=== PATIENT | male | born 1950 | race Caucasian/White ===

== ENCOUNTER 2018-08-05 22:56 | Inpatient (IN) | payer OTHER ==
[~2018-08-05] VITALS: Ht 167.6 cm; Wt 105.7 kg
--- NOTE | ~2018-08-05 | CON ---
[place], [place] REPORT OF CONSULTATION NAME: ABBY STANLEY UNIT #: [id number] ROOM: 411 DOCTOR: LORA BALDERAS MD BIRTHDATE: [birth year] DOS: CHIEF COMPLAINT: GI bleed, undergoing investigation. HISTORY OF PRESENT ILLNESS: The patient presented with H and H of 13 and 40, dropped to hemoglobin of 8, status post multi transfusion. His initial white blood cell was 13, H and H of 13 and 40 as well, platelet count of 279. INR of 1.0. Comprehensive metabolic panel: Glucose of 650, BUN and creatinine 68 and 147. Electrolytes: Sodium 129. Liver function test normal, lipase of 244. CT scan of the abdomen and pelvis was organized diverticulosis, no evidence of inflammatory process was noticed. CBC differential was reassessed. Comprehensive metabolic panel followed and latest H and H was noticed, progressive drop seen. H and H of 8 and 23. The patient is going to receive unit of packed cells. His BUN and creatinine gradually worsened to 68 and 1.47 with a pseudohyponatremia that was noticed. PAST MEDICAL HISTORY: Associated with obesity, diabetes mellitus, history of seizure activity, systemic hypertension, hyperlipidemia. PAST SURGICAL HISTORY: Tonsillectomy, cardiac catheterization, skin graft. SOCIAL HISTORY: Nonsmoker and alcohol consumer. FAMILY HISTORY: Noncontributory. Multi carcinomas. ALLERGIES: No known medications. MEDICATIONS: Medication list has been reviewed. REVIEW OF SYSTEMS: In general, HEENT: Denies double vision, blurred vision. RESPIRATORY: Denies acute shortness of breath. CARDIOVASCULAR: Denies chest pain. DIGESTIVE SYSTEM: As identified with GI bleed, melanotic stool. PHYSICAL EXAMINATION: VITAL SIGNS: Stable. HEENT: Head normocephalic, nontraumatic. Mouth and buccal mucosa benign. Poor dental hygiene. NECK: Supple, no thyromegaly, no cervical lymphadenopathy. CHEST: Symmetric anatomy, equal expansion. Few scattered rhonchi. HEART: Normal sinus rhythm, no gallop, no murmur. ABDOMEN: Morbid obese. Bowel sounds present. No pulsatile mass, ventral hernia was identified. EXTREMITIES: No cyanosis, no pedal edema. A few patches of superficial hematomas noticed. NEUROLOGIC: Alert and oriented. IMPRESSION: Black tarry stool, ruling out gastrointestinal bleed, ruling out peptic ulcer disease versus occult malignancy, status post transfusion. Other [place], [place] REPORT OF CONSULTATION NAME: ABBY STANLEY UNIT #: [id number] ROOM: 411 DOCTOR: LORA BALDERAS MD BIRTHDATE: [birth year] adjunctive diagnoses as outlined in paragraph of past medical, surgical history, pseudohyponatremia hyperglycemia prostatic hypertrophy, diabetes mellitus, systemic hypertension, hyperlipidemia. All has been recognized. PLAN AND DISCUSSION: Endoscopic investigation. LORA BALDERAS MD CM:CONSTR:REPORT OF CONSULTATION 1651 08/10/18 [id number] interface
--- NOTE | ~2018-08-05 | O ---
[place], [place] OPERATIVE NOTE NAME: ABBY STANLEY UNIT #: [id number] ROOM: 411 DOCTOR: [facility]ISS [facility] BIRTHDATE: [birth year] DOS: IDENTIFICATION: This is a 68-year-old patient who presented with GI bleed, undergoing investigation. PROCEDURE: Today's procedure part of investigation is panendoscopy and colonoscopy. PREMEDICATION: Propofol. SCOPE: Olympus forward-viewing gastroscope Q10 video. REPORT: After putting the patient in left lateral position and application of lubricant to the scope, scope was introduced. Thereafter, under direct visualization, advanced through the length of esophagus without difficulty. Evidence of reflux esophagitis, distal esophageal ulceration was identified. Small hiatal hernia of 2 cm was noticed. Gastric pouch was entered. Fresh blood admixed with bile in the gastric pouch was noticed. Scope was negotiated towards the antrum and pyloric ring that at 11'o clock pyloric ring, there is a visible vessel as a source of bleeding. Duodenum was entered. D1 multiple ulcerations D2 and D3 normal. A 2 mL divided dose epinephrine was injected in the flanks of the ulceration and resolution clips x 2 was applied in flanks of the ulceration. Antral biopsy obtained for H. pylori. GI reflection scope reveals cardia to be benign. Air was suctioned out. The patient was extubated, tolerated the procedure well. IMPRESSION: Distal esophageal ulcer secondary to reflux, hiatal hernia, pyloric ring visible vessel with bleeding, status post hemostasis therapy with epinephrine injection and Resolution clip, multi-duodenal ulcers D1 without active bleeding. PLAN AND DISCUSSION: Aggressive ulcer therapy with sucralfate 2 grams slurry 2 hours before meals and at bedtime and Protonix 50 mcg loading dose and 50 mcg per hour for up to 6 a.m. and after that reducing to 25 mcg per hour protection again rebleed of the pyloric ring ulcer diet to remain ice cream, milk shake, ____ ice water, designed for diabetic diet absolutely avoiding solid food right now despite the perspiration of the patient to receive the solid regular food and we will proceed also with a colonoscopy to make sure that we do not have synchronous bleeding. No IV from diverticular or ischemic bowel. Today's procedure part of investigation is colonoscopy. PREMEDICATION: Propofol. SCOPE: Olympus folding colonoscope 10L video. REPORT: After putting the patient in left lateral position and application of lubricant to the scope, the scope was introduced; thereafter, under direct visualization through the length of colon without difficulty. Diverticulosis was noticed large volume of blood in the colon was noticed. Therefore, the [place], [place] OPERATIVE NOTE NAME: ABBY STANLEY UNIT #: [id number] ROOM: 411 DOCTOR: LORA BALDERAS MD BIRTHDATE: [birth year] visualization extremely limited. The patient extubated, tolerated the procedure well. IMPRESSION: Limited colonoscopy presence of large volume of blood in the colon. PLAN AND DISCUSSION: Follow up H and H transfusion and workup in progress. LORA BALDERAS MD CM:OPRECORD:OPERATIVE NOTE 1651 [id number] LORA BALDERAS MD 08/10/18 1457 interface
[~2018-08-05 22:56] MED LIST: BP MED PO; GOUT MED PO; [UNRECOGNIZED DRUG - REMARK] PO
[2018-08-05 23:03] VITALS: BP 144/91
[2018-08-05 23:48] LABS: BASO # 0.1 10*3/uL (0.0-0.1); BASO % 0.4 % (0.0-1.0); EOS # 0.2 10*3/uL (0.0-0.4); EOS % 1.5 % (1.0-4.0); HEMATOCRIT 40.1 % (42.0-52.0); HEMOGLOBIN 13.8 g/dl (14.0-18.0); LYMPH # 1.5 10*3/uL (1.3-4.4); LYMPH % 11.1 % (27.0-41.0); MEAN CELL VOLUME 95.5 fl (80.0-94.0); MEAN CORPUSCULAR HGB 32.9 pg (27.0-31.0); MEAN CORPUSCULAR HGB CONC 34.4 g/dl (33.0-37.0); MEAN PLATELET VOLUME 11.5 fl (9.6-12.3); MONO # 0.4 10*3/uL (0.1-1.0); MONO % 3.2 % (3.0-9.0); NEUT # 11.3 10*3/uL (2.3-7.9); NEUT % 83.1 % (47.0-73.0); PLATELET COUNT AUTOMATED 279 10*3/uL (130-400); RED CELL DISTRI WIDTH 12.5 % (0-14.5); WHITE BLOOD COUNT 13.6 10*3/uL (4.8-10.8)
[2018-08-05 23:58] LABS: ACT PARTIAL THROMBO TIME 23.6 SECONDS (20.8-31.5); INTERNATIONAL NORM RATIO 1.1 (2.0-3.5)
[2018-08-06] VITALS (8 sets, daily range): BP systolic 113–158; BP diastolic 69–91
[2018-08-06 00:03] LABS: ALBUMIN 3.8 gm/dl (3.1-4.5); CREATININE 1.47 mg/dL (0.70-1.30); POTASSIUM 5.1 mmol/L (3.5-5.1); TOTAL PROTEIN 8.4 gm/dL (6.4-8.2)
[2018-08-06 07:03] LABS: BASO % 0.3 % (0.0-1.0); EOS # 0.1 10*3/uL (0.0-0.4); EOS % 0.4 % (1.0-4.0); HEMATOCRIT 35.6 % (42.0-52.0); HEMOGLOBIN 12.3 g/dl (14.0-18.0); LYMPH # 2.3 10*3/uL (1.3-4.4); LYMPH % 17.3 % (27.0-41.0); MEAN CELL VOLUME 94.9 fl (80.0-94.0); MEAN CORPUSCULAR HGB 32.8 pg (27.0-31.0); MEAN CORPUSCULAR HGB CONC 34.6 g/dl (33.0-37.0); MEAN PLATELET VOLUME 11.6 fl (9.6-12.3); MONO # 0.8 10*3/uL (0.1-1.0); MONO % 5.8 % (3.0-9.0); NEUT % 75.7 % (47.0-73.0); PLATELET COUNT AUTOMATED 271 10*3/uL (130-400); RED BLOOD COUNT 3.75 10*6/uL (4.50-5.90); RED CELL DISTRI WIDTH 12.5 % (0-14.5); WHITE BLOOD COUNT 13.3 10*3/uL (4.8-10.8)
[2018-08-06 07:36] LABS: BUN 57 mg/dl (7-24); CHLORIDE 109 mmol/L (98-107); CREATININE 1.01 mg/dL (0.70-1.30); POTASSIUM 4.9 mmol/L (3.5-5.1); SODIUM 141 mmol/L (136-145)
[2018-08-06 08:21] LABS: BILIRUBIN NEGATIVE (NEGATIVE); BLOOD NEGATIVE (NEGATIVE); CLARITY CLEAR (CLEAR); COLOR YELLOW (YELLOW); GLUCOSE 3+ (NEGATIVE); KETONE NEGATIVE (NEGATIVE); LEUKO ESTERASE NEGATIVE (NEGATIVE); NITRITE NEGATIVE (NEGATIVE); PH 5.5 (5.0-9.0); UROBILINOGEN 0.2 E.U./dl (0.2-1.0)
[2018-08-06 08:41] LABS: RBC 0-2 rbc/hpf (0-2); WBC 0-2 wbc/hpf (0-5)
[2018-08-06] MEDS ORDERED: ALLOPURINOL100 MG PO (09:42)
[2018-08-06] MEDS ORDERED: VICTOZA 3-PAK6 MG/ML SC (09:42)
[2018-08-06] MEDS ORDERED: LOPID600 M1 PO (09:43)
[2018-08-06] MEDS ORDERED: LOPRESSOR25 MG PO (09:43)
[2018-08-06] MEDS ORDERED: JANUVIA100 MG PO (09:43)
[2018-08-06] MEDS ORDERED: LIPITOR10 MG PO (09:44)
[2018-08-06] MEDS ORDERED: ZESTRIL5 MG PO (09:44)
[2018-08-06] MEDS ORDERED: GLUCOPHAGE1000 MG PO (09:44)
[2018-08-06] MEDS ORDERED: GLUCOTROL10 MG PO (09:45)
[2018-08-07] VITALS (14 sets, daily range): BP systolic 113–150; BP diastolic 58–89
[2018-08-07 06:08] LABS: BASO # 0.1 10*3/uL (0.0-0.1); BASO % 0.4 % (0.0-1.0); EOS # 0.1 10*3/uL (0.0-0.4); EOS % 0.4 % (1.0-4.0); LYMPH # 2.4 10*3/uL (1.3-4.4); LYMPH % 17.3 % (27.0-41.0); MEAN CELL VOLUME 95.7 fl (80.0-94.0); MEAN CORPUSCULAR HGB 33.3 pg (27.0-31.0); MEAN CORPUSCULAR HGB CONC 34.8 g/dl (33.0-37.0); MEAN PLATELET VOLUME 11.7 fl (9.6-12.3); MONO # 0.7 10*3/uL (0.1-1.0); MONO % 4.8 % (3.0-9.0); NEUT # 10.5 10*3/uL (2.3-7.9); NEUT % 75.7 % (47.0-73.0); PLATELET COUNT AUTOMATED 266 10*3/uL (130-400); RED BLOOD COUNT 2.76 10*6/uL (4.50-5.90); RED CELL DISTRI WIDTH 12.9 % (0-14.5); WHITE BLOOD COUNT 13.8 10*3/uL (4.8-10.8)
[2018-08-07 06:18] LABS: ALBUMIN 3.2 gm/dl (3.1-4.5); ALKALINE PHOSPHATASE 78 U/L (45-117); BUN 49 mg/dl (7-24); CHLORIDE 108 mmol/L (98-107); CHOLESTEROL 111 mg/dL (<200); CREATININE 1.02 mg/dL (0.70-1.30); FREE T4 0.74 ng/dl (0.76-1.46); HDL CHOLESTEROL 25 mg/dl (40-60); LDL CHOLESTEROL 45 mg/dL (9-159); POTASSIUM 4.3 mmol/L (3.5-5.1); SGOT/AST 13 IU/L (3-35); SGPT/ALT 23 U/L (12-78); SODIUM 138 mmol/L (136-145); TOTAL PROTEIN 6.9 gm/dL (6.4-8.2); TRIGLYCERIDES 207 mg/dl (<150); VLDL CHOLESTEROL 41 mg/dL (6-40)
[2018-08-07 06:32] LABS: HEMOGLOBIN 9.2 g/dl (14.0-18.0)
[2018-08-07 06:33] LABS: HEMATOCRIT 26.4 % (42.0-52.0)
[2018-08-07 06:35] LABS: ACT PARTIAL THROMBO TIME 20.5 SECONDS (20.8-31.5)
[2018-08-07 14:13] LABS: HEMATOCRIT 23.5 % (42.0-52.0); HEMOGLOBIN 8.2 g/dl (14.0-18.0)
[2018-08-08] VITALS: BP 116/57
[2018-08-08 00:40] LABS: HEMATOCRIT 25.8 % (42.0-52.0); HEMOGLOBIN 8.9 g/dl (14.0-18.0)
[2018-08-08 05:18] LABS: HEMATOCRIT 24.4 % (42.0-52.0); HEMOGLOBIN 8.5 g/dl (14.0-18.0)
[2018-08-08 07:58] VITALS: BP 132/74; BP 140/73
[2018-08-08 12:00] VITALS: BP 124/68
[2018-08-08 16:00] VITALS: BP 134/70
[2018-08-08 20:00] VITALS: BP 106/61
[2018-08-09] VITALS: BP 101/50
[2018-08-09 06:22] LABS: CHLORIDE 108 mmol/L (98-107); POTASSIUM 3.7 mmol/L (3.5-5.1); SODIUM 140 mmol/L (136-145)
[2018-08-09 06:23] LABS: BUN 23 mg/dl (7-24); CREATININE 0.98 mg/dL (0.70-1.30)
[2018-08-09 06:33] LABS: HEMATOCRIT 22.8 % (42.0-52.0); HEMOGLOBIN 7.7 g/dl (14.0-18.0); MEAN CELL VOLUME 96.6 fl (80.0-94.0); MEAN CORPUSCULAR HGB 32.6 pg (27.0-31.0); MEAN CORPUSCULAR HGB CONC 33.8 g/dl (33.0-37.0); MEAN PLATELET VOLUME 11.7 fl (9.6-12.3); NUCLEATED RED BLOOD CELL 0.1 10*3/uL (0.0-0.0); NUCLEATED RED BLOOD CELL 1.1 % (0.0-0.0); PLATELET COUNT AUTOMATED 187 10*3/uL (130-400); RED BLOOD COUNT 2.36 10*6/uL (4.50-5.90); RED CELL DISTRI WIDTH 14.5 % (0-14.5); WHITE BLOOD COUNT 10.3 10*3/uL (4.8-10.8)
[2018-08-09 07:15] LABS: BASOPHILS 1 % (0-1); PLATELET SUFFICIENCY NORMAL (NORMAL); POLYCHROMASIA SLIGHT; TOTAL CELLS COUNTED 100 #CELLS
[2018-08-09 08:00] VITALS: BP 130/52
[2018-08-09 12:00] VITALS: BP 125/67
[2018-08-09 16:00] VITALS: BP 108/65
[2018-08-09 20:00] VITALS: BP 109/57
[2018-08-10] VITALS: BP 93/55
[2018-08-10 06:09] LABS: BASO # 0.1 10*3/uL (0.0-0.1); BASO % 0.6 % (0.0-1.0); EOS # 0.5 10*3/uL (0.0-0.4); HEMATOCRIT 23.2 % (42.0-52.0); HEMOGLOBIN 7.8 g/dl (14.0-18.0); LYMPH % 23.1 % (27.0-41.0); MEAN CELL VOLUME 97.5 fl (80.0-94.0); MEAN CORPUSCULAR HGB 32.8 pg (27.0-31.0); MEAN CORPUSCULAR HGB CONC 33.6 g/dl (33.0-37.0); MEAN PLATELET VOLUME 11.1 fl (9.6-12.3); MONO # 0.5 10*3/uL (0.1-1.0); NEUT # 5.4 10*3/uL (2.3-7.9); NEUT % 62.6 % (47.0-73.0); NUCLEATED RED BLOOD CELL 0.5 % (0.0-0.0); PLATELET COUNT AUTOMATED 205 10*3/uL (130-400); RED BLOOD COUNT 2.38 10*6/uL (4.50-5.90); RED CELL DISTRI WIDTH 14.6 % (0-14.5); WHITE BLOOD COUNT 8.7 10*3/uL (4.8-10.8)
[2018-08-10 08:28] VITALS: BP 100/68
[2018-08-10] MEDS ORDERED: PROTONIX40 MG PO (11:16)
[2018-08-10] MEDS ORDERED: Carafate1 GM/10 ML PO (11:16)
[2018-08-10] MEDS ORDERED: NATURE'S BLEND100 M2 PO (11:16)
[2018-08-10] MEDS ORDERED: VITAMIN D32000 UNI1 PO (11:16)
[2018-08-10] MEDS ORDERED: FEROSUL325 MG PO (11:16)
== END 2018-08-10 12:04 | disposition home or self-care (01) | DRG 380 ==
LOC: ED 22:56 → EDHOLD 08-06 00:20 → 4E 08-06 00:20
PROVIDERS: Family Medicine; Internal Medicine; Internal Medicine Gastroenterology; Physician Assistant; Registered Nurse; ADMIT Internal Medicine
PROC: 0DB78ZX Excision of Stomach, Pylorus, Via Natural or Artificial Opening Endoscopic, Diagnostic (ICD-10-PCS; principal; 2018-08-07)
PROC: 0DJD8ZZ Inspection of Lower Intestinal Tract, Via Natural or Artificial Opening Endoscopic (ICD-10-PCS; principal; 2018-08-07)
PROC: 3E0G8GC Introduction of Other Therapeutic Substance into Upper GI, Via Natural or Artificial Opening Endoscopic (ICD-10-PCS; principal; 2018-08-07)
PROC: 30233N1 Transfusion of Nonautologous Red Blood Cells into Peripheral Vein, Percutaneous Approach (ICD-10-PCS; principal; 2018-08-07)
PROC: 0W3P8ZZ Control Bleeding in Gastrointestinal Tract, Via Natural or Artificial Opening Endoscopic (ICD-10-PCS; principal; 2018-08-07)
DX: K22.11 Ulcer of esophagus with bleeding (principal); N17.0 Acute kidney failure with tubular necrosis; E87.1 Hypo-osmolality and hyponatremia; D53.9 Nutritional anemia, unspecified; D72.810 Lymphocytopenia; N40.1 Benign prostatic hyperplasia with lower urinary tract symptoms; R35.0 Frequency of micturition; R74.8 Abnormal levels of other serum enzymes; K57.33 Diverticulitis of large intestine without perforation or abscess with bleeding; E11.65 Type 2 diabetes mellitus with hyperglycemia; K26.4 Chronic or unspecified duodenal ulcer with hemorrhage; I10 Essential (primary) hypertension; E78.5 Hyperlipidemia, unspecified; F10.10 Alcohol abuse, uncomplicated; K44.9 Diaphragmatic hernia without obstruction or gangrene; D72.823 Leukemoid reaction; K25.4 Chronic or unspecified gastric ulcer with hemorrhage; K29.81 Duodenitis with bleeding; E66.9 Obesity, unspecified; H40.9 Unspecified glaucoma; Z82.49 Family history of ischemic heart disease and other diseases of the circulatory system; Z83.3 Family history of diabetes mellitus; Z82.3 Family history of stroke; Z80.51 Family history of malignant neoplasm of kidney; Z80.0 Family history of malignant neoplasm of digestive organs; Z80.8 Family history of malignant neoplasm of other organs or systems; Z79.899 Other long term (current) drug therapy; Z68.37 Body mass index [BMI] 37.0-37.9, adult

== ENCOUNTER → 2018-08-14 | Outpatient (CLI) | payer OTHER ==
[~2018-08-14] MED LIST changes: +ALLOPURINOL100 MG PO; +Carafate1 GM/10 ML PO; +FEROSUL325 MG PO; +GLUCOPHAGE1000 MG PO; +GLUCOTROL10 MG PO; +JANUVIA100 MG PO; +LIPITOR10 MG PO; +LOPID600 M1 PO; +LOPRESSOR25 MG PO; +NATURE'S BLEND100 M2 PO; +PROTONIX40 MG PO; +VICTOZA 3-PAK6 MG/ML SC; +VITAMIN D32000 UNI1 PO; +ZESTRIL5 MG PO
[2018-08-14 11:45] LABS: HEMOGLOBIN 9.4 g/dl (14.0-18.0)
== END | disposition home or self-care (01) ==
LOC: LAB 11:03
PROVIDERS: Internal Medicine Gastroenterology
DX: D64.9 Anemia, unspecified (principal)

== ENCOUNTER → 2020-04-15 | Outpatient (CLI) | payer OTHER ==
[2020-04-15 12:38] LABS: HEMATOCRIT 47.4 % (42.0-52.0); MEAN CELL VOLUME 91.5 fl (80.0-94.0); MEAN CORPUSCULAR HGB 30.7 pg (27.0-31.0); MEAN CORPUSCULAR HGB CONC 33.5 g/dl (33.0-37.0); MEAN PLATELET VOLUME 11.4 fl (9.6-12.3); RED BLOOD COUNT 5.18 10*6/uL (4.50-5.90); WHITE BLOOD COUNT 8.8 10*3/uL (4.8-10.8)
[2020-04-15 13:09] LABS: ALBUMIN 4.1 gm/dl (3.1-4.5); ALKALINE PHOSPHATASE 113 U/L (45-117); BUN 17 mg/dl (7-24); CHLORIDE 105 mmol/L (98-107); CHOLESTEROL 88 mg/dL (<200); CREATININE 1.09 mg/dL (0.70-1.30); HDL CHOLESTEROL 40 mg/dl (40-60); LDL CHOLESTEROL 10 mg/dL (9-159); SGOT/AST 18 IU/L (3-35); SGPT/ALT 36 U/L (12-78); SODIUM 137 mmol/L (136-145); TOTAL PROTEIN 8.3 gm/dL (6.4-8.2); TRIGLYCERIDES 191 mg/dl (<150); VLDL CHOLESTEROL 38 mg/dL (6-40)
== END | disposition home or self-care (01) ==
LOC: LAB 11:23
PROVIDERS: ATTEND Physician Assistant
DX: E11.9 Type 2 diabetes mellitus without complications (principal); E78.5 Hyperlipidemia, unspecified; I10 Essential (primary) hypertension

== ENCOUNTER 2021-04-10 20:06 | Emergency (ER) | payer OTHER | END 2021-04-10 20:26 | disposition left against medical advice (07) | LOC: ED 20:06 | DX: L02.91 Cutaneous abscess, unspecified (principal); Z53.21 Procedure and treatment not carried out due to patient leaving prior to being seen by health care provider ==

== ENCOUNTER → 2021-04-12 | Outpatient (CLI) | payer OTHER | LOC: WOUNDCARE 00:51 | PROVIDERS: ATTEND Nurse Practitioner | DX: L02.01 Cutaneous abscess of face (principal); E11.622 Type 2 diabetes mellitus with other skin ulcer; L98.492 Non-pressure chronic ulcer of skin of other sites with fat layer exposed; I11.9 Hypertensive heart disease without heart failure; E66.9 Obesity, unspecified; E78.5 Hyperlipidemia, unspecified; M10.9 Gout, unspecified; N40.0 Benign prostatic hyperplasia without lower urinary tract symptoms; Z86.14 Personal history of Methicillin resistant Staphylococcus aureus infection; Z98.890 Other specified postprocedural states; Z79.4 Long term (current) use of insulin; Z79.899 Other long term (current) drug therapy; Z68.41 Body mass index [BMI] 40.0-44.9, adult ==

== ENCOUNTER 2021-08-05 15:06 | Emergency (ER) | payer OTHER ==
[~2021-08-05] VITALS: Wt 117.9 kg
[2021-08-05 15:54] LABS: BASO # 0.1 10*3/uL (0.0-0.1); BASO % 0.7 % (0.0-1.0); EOS # 0.5 10*3/uL (0.0-0.4); EOS % 5.8 % (1.0-4.0); HEMATOCRIT 42.6 % (42.0-52.0); LYMPH # 2.1 10*3/uL (1.3-4.4); LYMPH % 25.7 % (27.0-41.0); MEAN CELL VOLUME 85.7 fl (80.0-94.0); MEAN CORPUSCULAR HGB 29.4 pg (27.0-31.0); MEAN CORPUSCULAR HGB CONC 34.3 g/dl (33.0-37.0); MEAN PLATELET VOLUME 10.7 fl (9.6-12.3); MONO # 0.6 10*3/uL (0.1-1.0); MONO % 6.9 % (3.0-9.0); NEUT # 4.9 10*3/uL (2.3-7.9); NEUT % 60.3 % (47.0-73.0); PLATELET COUNT AUTOMATED 197 10*3/uL (130-400); RED BLOOD COUNT 4.97 10*6/uL (4.50-5.90); WHITE BLOOD COUNT 8.1 10*3/uL (4.8-10.8)
[2021-08-05 16:10] LABS: ALBUMIN 3.6 gm/dl (3.1-4.5); CREATININE 1.45 mg/dL (0.70-1.30); POTASSIUM 4.3 mmol/L (3.5-5.1)
[2021-08-05] MEDS ORDERED: NORVASC5 MG PO (18:13)
== END 2021-08-05 18:02 | disposition home or self-care (01) ==
LOC: ED 15:06
PROVIDERS: Student in an Organized Health Care Education/Training Program
DX: I16.0 Hypertensive urgency (principal); Z20.822 Contact with and (suspected) exposure to COVID-19; Z79.899 Other long term (current) drug therapy

== ENCOUNTER → 2022-12-04 | Outpatient (CLI) | payer OTHER ==
[~2022-12-04] MED LIST changes: +FISH OIL 1,0001 EAC6 PO; +NORVASC5 MG PO
== END | disposition home or self-care (01) ==
LOC: CARD 01:01
PROVIDERS: ATTEND Internal Medicine Cardiovascular Disease
DX: R07.89 Other chest pain (principal); R54 Age-related physical debility

== ENCOUNTER 2024-02-26 11:19 | Emergency (ER) | payer OTHER ==
[~2024-02-26] VITALS: Ht 167.6 cm; Wt 114.8 kg
[2024-02-26 11:51] LABS: BASO # 0.1 10*3/uL (0.0-0.1); BASO % 0.8 % (0.0-1.0); EOS # 0.5 10*3/uL (0.0-0.4); EOS % 4.7 % (1.0-4.0); HEMATOCRIT 52.9 % (42.0-52.0); LYMPH # 2.6 10*3/uL (1.3-4.4); LYMPH % 26.8 % (27.0-41.0); MEAN CELL VOLUME 93.8 fl (80.0-94.0); MEAN CORPUSCULAR HGB 32.4 pg (27.0-31.0); MEAN CORPUSCULAR HGB CONC 34.6 g/dl (33.0-37.0); MEAN PLATELET VOLUME 10.9 fl (9.6-12.3); MONO # 0.8 10*3/uL (0.1-1.0); MONO % 8.2 % (3.0-9.0); NEUT # 5.7 10*3/uL (2.3-7.9); NEUT % 59.2 % (47.0-73.0); PLATELET COUNT AUTOMATED 169 10*3/uL (130-400); RED BLOOD COUNT 5.64 10*6/uL (4.50-5.90); RED CELL DISTRI WIDTH 12.3 % (0-14.5); WHITE BLOOD COUNT 9.7 10*3/uL (4.8-10.8)
[2024-02-26 12:13] LABS: BUN 14 mg/dl (9-23); CHLORIDE 106 mmol/L (98-107); CPK 287 U/L (34-171); POTASSIUM 4.5 mmol/L (3.4-5.1)
[2024-02-26 12:39] LABS: BILIRUBIN Negative (Negative); BLOOD 1+ (Negative); CLARITY Cloudy (Clear); COLOR Yellow (Yellow); GLUCOSE 3+ (Negative); KETONE Negative (Negative); LEUKO ESTERASE 2+ (Negative); NITRITE Negative (Negative); SPECIFIC GRAVITY >= 1.030 (1.001-1.030); UROBILINOGEN 0.2 E.U./dl (0.0-1.0)
[2024-02-26 12:48] LABS: BACTERIA 2+; MUCOUS TRACE; WBC 51-100 wbc/hpf (0-5); YEAST 1+
[2024-02-26] MEDS ORDERED: CIPRO500 MG PO (12:53)
== END 2024-02-26 13:05 | disposition home or self-care (01) ==
LOC: ED 11:19
PROVIDERS: Physician Assistant Medical
DX: N39.0 Urinary tract infection, site not specified (principal); M79.605 Pain in left leg; M79.604 Pain in right leg; R53.1 Weakness; E11.9 Type 2 diabetes mellitus without complications; I10 Essential (primary) hypertension; E78.5 Hyperlipidemia, unspecified; M10.9 Gout, unspecified; F10.10 Alcohol abuse, uncomplicated; Z95.5 Presence of coronary angioplasty implant and graft; Z90.89 Acquired absence of other organs; Z98.890 Other specified postprocedural states

== ENCOUNTER 2024-08-03 12:27 | Emergency (ER) | payer OTHER ==
[~2024-08-03] VITALS: Ht 170.1 cm; Wt 113.4 kg
[~2024-08-03 12:27] MED LIST changes: +CIPRO500 MG PO
[2024-08-03] MEDS ORDERED: Amoxicillin/Clavulanate Pota 875 MG TAB PO ONE (13:10)
[2024-08-03] MEDS ORDERED: AMOX-CLAV 875-1 EACH PO (13:11)
== END 2024-08-03 13:14 | disposition home or self-care (01) ==
LOC: ED 12:27
DX: J02.0 Streptococcal pharyngitis (principal); E11.9 Type 2 diabetes mellitus without complications; I10 Essential (primary) hypertension; E78.5 Hyperlipidemia, unspecified; M10.9 Gout, unspecified; F10.10 Alcohol abuse, uncomplicated; Z90.89 Acquired absence of other organs; Z95.5 Presence of coronary angioplasty implant and graft; Z98.890 Other specified postprocedural states